=== PATIENT | male | born 1980 | race Caucasian/White ===

== ENCOUNTER 2019-09-25 14:16 | Emergency (ER) | payer OTHER, MEDICAID, SELFPAY ==
[2019-09-25 14:19] VITALS: BP 142/90; PULSE 86; RESP 22; TEMP 35.9; O2SAT 97
--- NOTE | 2019-09-25 14:33 | DI.RAD.S_ITS ---
PROCEDURE: XR ANKLE LT MIN 3V INDICATIONS: Tib-fib fracture TECHNIQUE: 3 views of the ankle were acquired. COMPARISON: [facility], CR, CHEST 1 VIEW, 12/07/2016, 21:18. FINDINGS: Bones: There is an obliquely oriented (spiral) fracture identified involving the distal shaft of the left tibia with approximately 9 mm of lateral displacement of the distal fracture fragment. No fracture c extending into the metaphysis. There is also an obliquely oriented fracture evident involving the distal shaft of the fibula with apparent extension into the region of the distal tibiofibular syndesmosis and the ankle joint. There is lateral angulation and displacement of the distal fracture fragment by up to approximately 8 mm. The alignment of the ankle mortise is anatomic. There is no dislocation or suspicious osseous lesion. There is a moderate-sized plantar calcaneal spur. Soft tissues: No tibiotalar joint effusion. Soft tissue swelling about the ankle/lower leg is present. IMPRESSION: Spiral fractures of the distal left tibia and fibula. There appears to be intra-articular (ankle joint) extension of the fibula. Dictated by: Jayden Whiteside M.D. on 09/25/2019 at 14:13 Approved by: Jayden Whiteside M.D. on 09/25/2019 at 14:17
--- NOTE | 2019-09-25 14:42 | ED_ITS ---
HPI - Extremity Injury (Lower) General Chief Complaint: Extremity Injury, Lower Stated Complaint: Twisted L leg Time Seen by Provider: 09/25/19 14:33 Source: patient Mode of arrival: Wheelchair Limitations: no limitations History of Present Illness HPI Narrative: 38-year-old male here for evaluation of left leg injury. Patient states he was at home playing with his kids. He states that he was jumping up and down spinning in circles and when he did this he landed on his left leg wrong and immediately fell to the ground with pain. He did place a homemade splint on his left lower extremity and came to the emergency department for evaluation. No prior injuries to this area. No other injuries reported from the event. Related Data Previous Rx's Medication Instructions Recorded oxycodone 1 tab PO Q6H #30 tab 12/29/16 hydrocodone-acetaminophen [[place]] 1 tab PO Q4H PRN #20 tab 09/25/19 oxycodone 5 mg PO Q8H PRN #14 tab 09/25/19 Allergies Allergy/AdvReac Type Severity Reaction Status Date / Time No Known Drug Allergies Allergy Verified 09/25/19 14:35 Review of Systems Constitutional Constitutional: Denies frequent falls Cardiovascular Cardiovascular: Denies chest pain and Denies dyspnea Respiratory Respiratory: Denies dyspnea Gastrointestinal Gastrointestinal: Denies abdominal pain Musculoskeletal Musculoskeletal: Denies tingling Comments: Left leg pain Integumentary/Breasts Skin/Breast: Denies rash Neurologic Neurologic: Denies frequent falls and Denies tingling Hematologic/Lymphatic Hematologic/Lymphatic: Denies easy bleeding and Denies easy bruising Patient History Medical History Closed fracture of alveolar process of maxilla, initial encounter Concussion (Inactive) Nasal fracture (Inactive) Orbital fracture (Inactive) 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, subsequent encounter alcohol intake frequency: 3 or more drinks per day Exam Initial Vital Signs Initial Vital Signs: Vital Signs Temperature 96.7 F L 09/25/19 14:19 Pulse Rate 86 09/25/19 14:19 Respiratory Rate 22 09/25/19 14:19 Blood Pressure 142/90 H 09/25/19 14:19 Pulse Oximetry 97 09/25/19 14:19 Const General: cooperative, healthy appearing and comfortable [facility] Head: normal to inspection and normocephalic Cardio Pulses: dorsalis pedis present on the left Skin Lesions: no lesions Rashes: no rashes Other: No fracture blisters noted Neuro Sensory Exam: no sensory deficits noted Extrem Other: Tenderness to palpation distal 3rd of left tib-fib. Cannot flex and extend his ankle without pain. Can flex his knee. Psych Appearance: grossly normal and well kempt Procedures Orthopedic Splinting/Casting Injury #1: Side: left Lower Extremity Injury Location: lower leg Lower Extremity Immobilizer: posterior splint and stirrup splint Other Orthopedic Equipment: crutches Post splinting neuro exam: no change Post splinting vascular exam: no change Placed by: Provider Course Orders Ordered: ED Orders 09/25/19 14:33 XR ankle LT min 3V Stat 09/25/19 15:45 CT LE LT wo con Stat Discontinued Medications Hydromorphone HCl (Dilaudid) 1 mg IM NOW ONE Stop: 09/25/19 14:34 Last Admin: 09/25/19 15:03 Dose: 1 mg Documented by: RAFAEL Vital Signs Vital signs: Vital Signs - 8 hr 09/25/19 14:19 09/25/19 15:30 09/25/19 17:02 Temperature 96.7 F L Pulse Rate 86 76 75 Respiratory Rate 22 16 18 Blood Pressure 142/90 H Blood Pressure [Right Arm] 157/90 H 157/95 H Pulse Oximetry 97 98 96 09/25/19 17:14 Temperature Pulse Rate 82 Respiratory Rate 16 Blood Pressure Blood Pressure [Right Arm] 147/88 H Pulse Oximetry 97 MDM - Extremity Injury (Lower) Imaging Data Extremity x-ray #1: Radiologist's Impression: [address] [address] XRay Report Signed Patient: Kilo Polanco RMR#: [id number] : 1980Acct:[id number] Age/Sex: 38 / MDate of Service: 09/25/19 Loc: ED Accession Number: [id number] Procedure: XR ankle LT min 3V Ordering Provider: Eric Atkins D.O. PROCEDURE: XR ANKLE LT MIN 3V INDICATIONS: Tib-fib fracture TECHNIQUE: 3 views of the ankle were acquired. COMPARISON: [facility], , CHEST 1 VIEW, 12/07/2016, 21:18. FINDINGS: Bones: There is an obliquely oriented (spiral) fracture identified involving the distal shaft of the left tibia with approximately 9 mm of lateral displacement of the distal fracture fragment. No fracture c extending into the metaphysis. There is also an obliquely oriented fracture evident involving the distal shaft of the fibula with apparent extension into the region of the distal tibiofibular syndesmosis and the ankle joint. There is lateral angulation and displacement of the distal fracture fragment by up to approximately 8 mm. The alignment of the ankle mortise is anatomic. There is no dislocation or suspicious osseous lesion. There is a moderate-sized plantar calcaneal spur. Soft tissues: No tibiotalar joint effusion. Soft tissue swelling about the ankle/lower leg is present. IMPRESSION: Spiral fractures of the distal left tibia and fibula. There appears to be intra-articular (ankle joint) extension of the fibula. Dictated by: Jayden Whiteside M.D. on 09/25/2019 at 14:13 Approved by: Jayden Whiteside M.D. on 09/25/2019 at 14:17 CT lower extremity: Radiologist's Impression: [place] [address] CT Scan Report Signed Patient: Kilo Polanco RMR#: [id number] : 1980Acct:[id number] Age/Sex: 38 / MDate of Service: 09/25/19 Loc: ED Accession Number: [id number] Procedure: CT LE LT wo con Ordering Provider: Eric Atkins D.O. PROCEDURE: CT LE LT W CON INDICATIONS: Tib-fib fracture CT requested by Ortho TECHNIQUE: Noncontrast 1-1.5 mm axial sections acquired from above the tibiotalar joint to the bottom of the calcaneus, with coronal and sagittal reformats. COMPARISON: [facility], CR, XR ANKLE LT MIN 3V, 09/25/2019, 14:24. FINDINGS: Image quality: Diagnostic. Bones: There is an obliquely oriented segmented fracture identified involving the distal shaft of the tibia that does not extend into the joint space. There is lateral displacement of the principle distal fracture fragments by up to approximately 7-8 mm. There also is an obliquely oriented fracture present involving the distal shaft of the fibula with posterior displacement of the distal fracture fragments by approximately 15 mm and lateral displacement of the distal fracture fragments by approximately 6 mm. Mild comminution of this fracture is present. Fracture lines are identified extending into the distal tibiofibular syndesmosis, which is felt to be intra-articular. There is also extension into the lateral malleolus without displacement. The alignment of the ankle mortise is anatomic. No osteochondral defects are present involving the tibial plafond toward the talar dome. No suspicious osseous lesions are identified. No additional fractures are evident. Soft tissues: Prominent soft tissue swelling about the left lower leg is identified at the fracture site. No drainable or loculated fluid collections are appreciated. No soft tissue masses are identified. Please note that the ligamentous, tendinous, and cartilaginous structures of the ankle are not adequately characterized on CT. No significant atrophy involving the intrinsic muscles of the imaged lower leg are evident. There appears to be a small tibiotalar joint effusion. No radiopaque foreign bodies are evident. IMPRESSION: 1. Moderately displaced segmented distal tibia fracture. 2. Comminuted distal fibula fracture with fracture lines extending into the lateral malleolus and the distal tibiofibular syndesmosis without associated syndesmotic widening. 2. Prominent soft tissue swelling at the fracture sites. MDM Narrative Medical decision making narrative: I did discuss the patient's injuries with Dr. Sterling with Orthopedics who recommended the CT scan. After the CT scan he felt that the patient would be better off followed up with an orthopedic trauma provider. He did not feel that this needed to have any emergent. Patient was neurovascularly intact. I did contact [facility] who took down his information and will put in the appropriate referrals for him to follow-up. Patient was given this information. He was given return precautions and follow- up instructions in care instructions. He expressed understanding and agreement. Discharge Plan Departure Patient Disposition: Home Clinical Impression: Fracture, tibia and fibula Qualifiers: Encounter type: initial encounter Fracture type: closed Laterality: left Qualified Code(s): S82.202A - Unspecified fracture of shaft of left tibia, initial encounter for closed fracture Instructions: How to Use Crutches, DI for Shinbone Fracture, How to Take Care of Your Splint Activity Restrictions/Additional Instructions: The splint that was placed today should be treated like a cast. You need to keep it on and keep it clean and keep it dry. You do have a fracture of both of the bones in your left leg. Do not walk on your left leg. This type of injury may require surgery. Our orthopedic provider here stated that you would best be followed up with a orthopedic trauma surgeon. I did contact the [facility] who is going to work on placing a referral for you for this follow- up. You can contact them at [phone]. As a last resort you can contact the [facility] group at [phone]. I discussed your case today with Dr. sterling. Please return to the emergency department for any new or worsening symptoms Prescriptions: New hydrocodone-acetaminophen [[place]] 5-325 mg tablet 1 tab PO Q4H PRN (Reason: pain) Qty: 20 RF: 0 oxycodone 5 mg tablet 5 mg PO Q8H PRN (Reason: pain) Qty: 14 RF: 0 No Action oxycodone 5 MG tablet 1 tab PO Q6H Qty: 30 RF: 0 Referrals: Danae Patel PA-C [Primary Care Provider] -
[2019-09-25] MEDS: HYDROMORPHONE 1 MG INJ IM (15:03)
[2019-09-25 15:30] VITALS: BP 157/90; PULSE 76; RESP 16; O2SAT 98
--- NOTE | 2019-09-25 15:45 | DI.CT.S_ITS ---
PROCEDURE: CT LE LT W CON INDICATIONS: Tib-fib fracture CT requested by Ortho TECHNIQUE: Noncontrast 1-1.5 mm axial sections acquired from above the tibiotalar joint to the bottom of the calcaneus, with coronal and sagittal reformats. COMPARISON: [facility], CR, XR ANKLE LT MIN 3V, 09/25/2019, 14:24. FINDINGS: Image quality: Diagnostic. Bones: There is an obliquely oriented segmented fracture identified involving the distal shaft of the tibia that does not extend into the joint space. There is lateral displacement of the principle distal fracture fragments by up to approximately 7-8 mm. There also is an obliquely oriented fracture present involving the distal shaft of the fibula with posterior displacement of the distal fracture fragments by approximately 15 mm and lateral displacement of the distal fracture fragments by approximately 6 mm. Mild comminution of this fracture is present. Fracture lines are identified extending into the distal tibiofibular syndesmosis, which is felt to be intra-articular. There is also extension into the lateral malleolus without displacement. The alignment of the ankle mortise is anatomic. No osteochondral defects are present involving the tibial plafond toward the talar dome. No suspicious osseous lesions are identified. No additional fractures are evident. Soft tissues: Prominent soft tissue swelling about the left lower leg is identified at the fracture site. No drainable or loculated fluid collections are appreciated. No soft tissue masses are identified. Please note that the ligamentous, tendinous, and cartilaginous structures of the ankle are not adequately characterized on CT. No significant atrophy involving the intrinsic muscles of the imaged lower leg are evident. There appears to be a small tibiotalar joint effusion. No radiopaque foreign bodies are evident. IMPRESSION: 1. Moderately displaced segmented distal tibia fracture. 2. Comminuted distal fibula fracture with fracture lines extending into the lateral malleolus and the distal tibiofibular syndesmosis without associated syndesmotic widening. 2. Prominent soft tissue swelling at the fracture sites. Dictated by: Jayden Whiteside M.D. on 09/25/2019 at 15:13 Approved by: Jayden Whiteside M.D. on 09/25/2019 at 15:17
[2019-09-25 17:02] VITALS: BP 157/95; PULSE 75; RESP 18; O2SAT 96
[2019-09-25 17:14] VITALS: BP 147/88; PULSE 82; RESP 16; O2SAT 97
== END 2019-09-25 17:35 | disposition home or self-care (01) ==
PROVIDERS: Emergency Provider Emergency Medicine; Family Provider Physician Assistant; PCP Physician Assistant
DX: S82.202A Unspecified fracture of shaft of left tibia, initial encounter for closed fracture (principal); W19.XXXA Unspecified fall, initial encounter
CPT/HCPCS: 73610; 73700; 96372; 99283; 99284; J1170

== ENCOUNTER 2019-10-03 13:34 | Emergency (ER) | payer OTHER, MEDICAID, SELFPAY ==
[2019-10-03 13:44] VITALS: BP 143/98; PULSE 88; RESP 16; O2SAT 97; BMI 28.2
--- NOTE | 2019-10-03 14:10 | PC.NURSE ---
Pt is still in splint from ER. Sensation, circulation intact distally. Pt states his pain is so severe that he cannot sleep
--- NOTE | 2019-10-03 14:24 | ED.LOWEXIN ---
HPI - Extremity Injury (Lower) General Chief Complaint: Extremity Injury, Lower Stated Complaint: Left leg, out of pills Time Seen by Provider: 10/03/19 13:57 Source: patient Mode of arrival: other (Crutches) Limitations: no limitations History of Present Illness HPI Narrative: 38-year-old male who evaluated the emergency department for a left lower extremity tibia/fibula fracture. He has a splint in place. Since he was here in the emergency department he has contacted his primary provider. Referral his in for him to see Orthopedics however he has yet to schedule this appointment. He states he is waiting for them to call him back. He has an appoint with his primary on Tuesday. He is here for a refill of his pain medication. He states that his leg did bruise but it seems to be improving. His in some discomfort but he states the pain medication is helping this. He has not removed the splint. He has not put any weight on his leg. He has been using crutches. Related Data Previous Rx's Medication Instructions Recorded oxycodone 1 tab PO Q6H #30 tab 12/29/16 hydrocodone-acetaminophen [[place]] 1 tab PO Q4H PRN #20 tab 09/25/19 oxycodone 5 mg PO Q8H PRN #14 tab 09/25/19 hydrocodone-acetaminophen [[place]] 1 tab PO Q4-6H PRN #20 tab 10/03/19 Allergies Allergy/AdvReac Type Severity Reaction Status Date / Time acetaminophen AdvReac Verified 10/03/19 13:46 Review of Systems Constitutional Constitutional: Denies fever(s) Musculoskeletal Musculoskeletal: Denies tingling Comments: Left leg pain Integumentary/Breasts Comments: Bruising of the left leg Neurologic Neurologic: Denies tingling Hematologic/Lymphatic Hematologic/Lymphatic: Denies easy bleeding and Denies easy bruising Patient History Medical History Closed fracture of alveolar process of maxilla, initial encounter Concussion (Inactive) Nasal fracture (Inactive) Orbital fracture (Inactive) 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 This does not appear to be new. Neuro Other: Patient is able to wiggle his toes on the left. He has sensation in his toes. Extrem General: capillary refill normal Course Vital Signs Vital signs: Vital Signs - 8 hr 10/03/19 13:44 Pulse Rate 88 Respiratory Rate 16 Blood Pressure 143/98 H Pulse Oximetry 97 MDM - Extremity Injury (Lower) MDM Narrative Medical decision making narrative: We did rewrap the patient's splint with an [place] bandage. The spine was not removed. Given his history of will refill his pain medication. He does have follow-up already scheduled. We did discuss him being on a good bowel regimen in order to prevent constipation. Reiterated keeping his splint on and keeping it clean and not putting any weight on his leg. Patient expressed understanding and agreement. Discharge Plan Departure Patient Disposition: Home Clinical Impression: Fracture, tibia and fibula Qualifiers: Encounter type: subsequent encounter Fracture type: closed Laterality: left Fracture healing: with routine healing Qualified Code(s): S82.202D - Unspecified fracture of shaft of left tibia, subsequent encounter for closed fracture with routine healing Activity Restrictions/Additional Instructions: Be sure to keep all of your scheduled medical appointments. Use the medications as directed. Return to the emergency department for any new or worsening symptoms. Prescriptions: New hydrocodone-acetaminophen [[place]] 5-325 mg tablet 1 tab PO Q4-6H PRN (Reason: pain) Qty: 20 RF: 0 No Action oxycodone 5 MG tablet 1 tab PO Q6H Qty: 30 RF: 0 hydrocodone-acetaminophen [[place]] 5-325 mg tablet 1 tab PO Q4H PRN (Reason: pain) Qty: 20 RF: 0 oxycodone 5 mg tablet 5 mg PO Q8H PRN (Reason: pain) Qty: 14 RF: 0 Referrals: Danae Patel PA-C [Primary Care Provider] -
== END 2019-10-03 14:41 | disposition home or self-care (01) ==
PROVIDERS: Emergency Provider Emergency Medicine; Family Provider Physician Assistant; PCP Physician Assistant
DX: S82.202D Unspecified fracture of shaft of left tibia, subsequent encounter for closed fracture with routine healing (principal)
CPT/HCPCS: 99281